=== PATIENT | male | born 1950 | race Caucasian/White ===

== ENCOUNTER 2016-09-21 11:45 | Observation (INO) | payer OTHER ==
[~2016-09-21] VITALS: Ht 177.8 cm; Wt 72.2 kg
[2016-09-21 12:28] LABS: RED BLOOD COUNT 5.05 M/UL (4.20-5.50); WHITE BLOOD COUNT 11.3 K/UL (4.5-11.0)
[2016-09-21 12:55] LABS: BUN/CREATININE RATIO 25 (0-10)
[2016-09-21 13:16] LABS: THEOPHYLLINE < 2.0 ug/mL (10.0-20.0)
[2016-09-21] MEDS ORDERED: FLOMAX0.4 MG PO (20:40)
[2016-09-21] MEDS ORDERED: OMEPRAZOLE20 MG PO (20:40)
[2016-09-21] MEDS ORDERED: PREDNISONE20 MG PO (20:40)
[2016-09-21] MEDS ORDERED: TOPROL XL50 MG PO (20:41)
[2016-09-21] MEDS ORDERED: LIPITOR40 MG PO (20:42)
[2016-09-21] MEDS ORDERED: THEO-DUR 200 M200 MG PO (20:42)
[2016-09-21] MEDS ORDERED: PLAQUENIL200 MG PO (20:43)
[2016-09-21] MEDS ORDERED: HYDROCHLOROTHIA25 MG PO (20:43)
[2016-09-21] MEDS ORDERED: PROVENTIL HFA 61 INH INH (20:45)
[2016-09-21] MEDS ORDERED: SYMBICORT 16010.2 GM INH (20:46)
[2016-09-22 06:05] LABS: HEMOGLOBIN 14.2 gm/dl (14.0-17.5); RED BLOOD COUNT 4.79 M/UL (4.20-5.50); WHITE BLOOD COUNT 11.3 K/UL (4.5-11.0)
[2016-09-22 06:22] LABS: BUN/CREATININE RATIO 21 (0-10)
[2016-09-23] MEDS ORDERED: LEVAQUIN500 MG PO (13:18)
== END 2016-09-23 13:52 | disposition home or self-care (01) ==
LOC: ER1 11:45 → ZEROF 15:40 → MED SURG 4 15:40
PROVIDERS: Emergency Medicine; ADMIT Hospitalist
DX: J44.0 Chronic obstructive pulmonary disease with (acute) lower respiratory infection (principal); J20.9 Acute bronchitis, unspecified; C34.11 Malignant neoplasm of upper lobe, right bronchus or lung; I10 Essential (primary) hypertension; E78.5 Hyperlipidemia, unspecified; I25.10 Atherosclerotic heart disease of native coronary artery without angina pectoris; F17.210 Nicotine dependence, cigarettes, uncomplicated; Z85.46 Personal history of malignant neoplasm of prostate; Z85.828 Personal history of other malignant neoplasm of skin; Z83.3 Family history of diabetes mellitus; Z79.2 Long term (current) use of antibiotics; Z79.82 Long term (current) use of aspirin; Z79.899 Other long term (current) drug therapy; Z90.2 Acquired absence of lung [part of]; Z99.81 Dependence on supplemental oxygen
CPT/HCPCS: 36415; 36600; 71010; 80048; 80053; 80198; 82803; 83605; 83735; 84484; 85025; 85379; 87040; 93005; 94640; 94664; 96365; 96375; 99285; G0378; J1956; J2405; J2930; J7030

== ENCOUNTER → 2016-11-25 | Outpatient (CLI) | payer OTHER ==
[~2016-11-25] MED LIST: FLOMAX0.4 MG PO; HYDROCHLOROTHIA25 MG PO; LEVAQUIN500 MG PO; LIPITOR40 MG PO; OMEPRAZOLE20 MG PO; PLAQUENIL200 MG PO; PREDNISONE20 MG PO; PROVENTIL HFA 61 INH INH; SYMBICORT 16010.2 GM INH; THEO-DUR 200 M200 MG PO; TOPROL XL50 MG PO
== END ==
LOC: CT 08:55
DX: C34.11 Malignant neoplasm of upper lobe, right bronchus or lung (principal); D72.829 Elevated white blood cell count, unspecified; R91.1 Solitary pulmonary nodule; Z98.890 Other specified postprocedural states
CPT/HCPCS: 71260; Q9962

== ENCOUNTER → 2016-12-16 | Outpatient (CLI) | payer OTHER | LOC: LAB 08:20 | DX: C34.11 Malignant neoplasm of upper lobe, right bronchus or lung (principal); D72.829 Elevated white blood cell count, unspecified | CPT/HCPCS: 36415; 85610; 85730 ==

== ENCOUNTER → 2021-06-13 | Outpatient (CLI) | payer MEDICARE ==
[~2021-06-13] MED LIST changes: +ELIQUIS2.5 MG PO; +IPRAT-ALBUT 0.5-3 ML INH; +K-DUR TAB 20 M20 MEQ PO; +LASIX 40 MG TAB40 MG PO; +LORTAB 5-325 M1 EACH PO; +MEDROL4 MG PO; +PREDNISONE10 MG PO; +SENOKOT-S TABL1 EACH PO; -THEO-DUR 200 M200 MG PO; +THEOPHYLLINE400 MG PO; +VITAMIN D350 MCG PO
== END ==
LOC: KOH-I 15:39
DX: Z87.891 Personal history of nicotine dependence (principal); R91.8 Other nonspecific abnormal finding of lung field
CPT/HCPCS: 71271